=== PATIENT | male | born 1945 | race Caucasian/White ===

== ENCOUNTER → 2016-09-20 | Day surgery (SDC) | payer MEDICARE, OTHER ==
[~2016-09-20] MED LIST: CIPRO500 MG PO; COUMADIN4 MG PO; FLOMAX0.4 MG PO; HYDROCODON-ACE1 EAC6 PO; PROSCAR5 MG PO; VALIUM10 MG PO; ZOFRAN4 MG PO
== END | disposition home or self-care (01) ==
LOC: SDC 09:33
DX: Z12.11 Encounter for screening for malignant neoplasm of colon (principal); D12.3 Benign neoplasm of transverse colon; Z85.038 Personal history of other malignant neoplasm of large intestine; I10 Essential (primary) hypertension; Z79.01 Long term (current) use of anticoagulants; K82.9 Disease of gallbladder, unspecified; Z90.49 Acquired absence of other specified parts of digestive tract; Z87.442 Personal history of urinary calculi; N40.0 Benign prostatic hyperplasia without lower urinary tract symptoms; H26.9 Unspecified cataract
CPT/HCPCS: J2704

== ENCOUNTER → 2016-09-24 | Day surgery (SDC) | payer MEDICARE, OTHER | END | disposition home or self-care (01) | LOC: SDC 14:43 | DX: K81.1 Chronic cholecystitis (principal); I10 Essential (primary) hypertension; N40.0 Benign prostatic hyperplasia without lower urinary tract symptoms; Z90.49 Acquired absence of other specified parts of digestive tract; Z79.01 Long term (current) use of anticoagulants; Z87.442 Personal history of urinary calculi | CPT/HCPCS: J1885; J2704; J2765; Q9967 ==

== ENCOUNTER 2016-09-29 08:22 | Inpatient (IN) | payer MEDICARE, OTHER ==
[~2016-09-29] VITALS: Ht 182.9 cm; Wt 69.2 kg
== END 2016-10-01 15:10 | disposition home or self-care (01) | DRG 392 ==
LOC: ER 08:22 → MED 16:27
PROVIDERS: ADMIT Internal Medicine
DX: K91.0 Vomiting following gastrointestinal surgery (principal); N17.9 Acute kidney failure, unspecified; D68.32 Hemorrhagic disorder due to extrinsic circulating anticoagulants; E86.0 Dehydration; K76.89 Other specified diseases of liver; R11.2 Nausea with vomiting, unspecified; R79.1 Abnormal coagulation profile; I10 Essential (primary) hypertension; Z79.01 Long term (current) use of anticoagulants; N40.0 Benign prostatic hyperplasia without lower urinary tract symptoms; Z85.038 Personal history of other malignant neoplasm of large intestine; E53.8 Deficiency of other specified B group vitamins; Z90.49 Acquired absence of other specified parts of digestive tract
CPT/HCPCS: 36415; 74181; J1885; J2550

== ENCOUNTER 2016-09-29 08:22 | Emergency (ER) | payer MEDICARE, OTHER | END 2016-09-29 16:26 | disposition critical access hospital (66) | LOC: ER 08:22 | DX: G89.18 Other acute postprocedural pain (principal); R10.9 Unspecified abdominal pain; R11.2 Nausea with vomiting, unspecified; E86.0 Dehydration | CPT/HCPCS: 36415; 74181; 96361; 96374; 96375; 96376; J2550 ==